=== PATIENT | male | born 1960 | race African-American/Black ===

== ENCOUNTER 2017-04-14 11:49 | Emergency (ER) | payer MEDICAID, OTHER ==
[~2017-04-14] VITALS: Ht 165.1 cm; Wt 73.0 kg
[2017-04-14] MEDS ORDERED: BACITRACIN ZINC OINT UDPKT TOP ONE (13:15)
[2017-04-14] MEDS ORDERED: LIDOCAINE HCL 1%/EPI 1:200,000 30 ML VIAL MC ONE (13:15)
[2017-04-14] MEDS ORDERED: LIDOCAINE HCL 1% 20ML VIAL (Pyxis) INJ INFIL ONE (13:45)
[2017-04-14 15:10] LABS: BASOPHILS % 0.4 % (0.0-2.0); EOSINOPHILS % 1.8 % (0.0-5.0); HEMATOCRIT. 40.8 % (42.0-52.0); HEMOGLOBIN. 13.3 g/dL (14.0-18.0); LYMPHOCYTES % 34.6 % (20.0-50.0); MEAN CORPUSCULAR HEMOGLOBIN 23.1 pg (28.0-32.0); MEAN CORPUSCULAR VOLUME 70.9 fL (80.0-94.0); MEAN PLATELET VOLUME 8.3 fl (7.4-10.4); MONOCYTES % 8.6 % (2.0-8.0); NEUTROPHILS % 54.6 % (40.0-76.0); PLATELET 204 x1000/uL (130-400); RED BLOOD CELL COUNT 5.76 mill/uL (4.7-6.1); RED CELL DISTRIBUTION WIDTH 14.1 % (11.6-14.6)
[2017-04-14] MEDS ORDERED: HYDROCODONE/ACETAMINOPHEN 5/325MG TABLET PO ONE (15:15)
[2017-04-14 15:31] LABS: CHLORIDE 109 mEq/L (98-107)
[2017-04-14 15:42] LABS: CARBON DIOXIDE 25 mEq/L (21-32)
[2017-04-14 16:30] VITALS: BP 121/89
== END 2017-04-14 17:09 | disposition home or self-care (01) ==
LOC: ER 13:17
DX: S01.21XA Laceration without foreign body of nose, initial encounter (principal); R68.84 Jaw pain; R51 Headache; F17.200 Nicotine dependence, unspecified, uncomplicated; I10 Essential (primary) hypertension; Y08.89XA Assault by other specified means, initial encounter; Y93.89 Activity, other specified; Y92.89 Other specified places as the place of occurrence of the external cause; Y99.0 Civilian activity done for income or pay
CPT/HCPCS: 12011; 36415; 70450; 70486; 72125; 80053; 80185; 85025; 99285; J3490; X7700; Z7610